=== PATIENT | female | born 1955 | race Two or more races ===

== ENCOUNTER 2023-11-24 15:41 | Inpatient (IN) | payer MEDICARE ==
[~2023-11-24] VITALS: Ht 160 cm; Wt 90.7 kg
[2023-11-24] MEDS ORDERED: HYDROMORPHONE 1 MG/1 ML DISP.SYRIN ONE ×2 (16:10→18:57)
[2023-11-24] MEDS: HYDROMORPHONE 1 MG/1 ML DISP.SYRIN IM ONE ×2 (16:14→19:02)
[2023-11-24] MEDS ORDERED: LORAZEPAM 1 MG TABLET ONE (17:12)
[2023-11-24] MEDS: LORAZEPAM 1 MG TABLET PO ONE (17:25)
[2023-11-24 18:50] LABS: BASOPHILS % (AUTO) 0.2 % (0.0-2.0); HEMATOCRIT 42 % (33-45); HEMOGLOBIN 14.2 g/dL (11.5-14.8); LYMPHOCYTES # (AUTO) 0.6 K/uL (0.8-4.8); LYMPHOCYTES % (AUTO) 6.3 % (20.0-44.0); MEAN CORPUSCULAR HEMOGLOBIN 30 PG (26.0-33.0); MEAN CORPUSCULAR HGB CONC 34 g/dl (31.0-36.0); MEAN CORPUSCULAR VOLUME 88 fL (82-100); MONOCYTES # (AUTO) 0.6 K/uL (0.1-1.30); MONOCYTES % (AUTO) 6.8 % (2.0-12.0); NEUTROPHILS # (AUTO) 8.1 K/uL (1.8-8.9); NEUTROPHILS % (AUTO) 86.7 % (43.0-81.0); PLATELET COUNT (AUTO) 105 K/uL (150-450); RED BLOOD CELL COUNT(AUTO) 4.78 MIL/uL (4.0-5.2); RED CELL DISTRIBUTION WIDTH 17.1 % (11.5-15.0); WHITE BLOOD COUNT (AUTO) 9.4 K/uL (4.3-11.0)
[2023-11-24] MEDS: HYDROMORPHONE 1 MG/1 ML DISP.SYRIN IV ONE (19:08)
[2023-11-24 19:22] LABS: CALCIUM, SERUM 9.9 mg/dL (8.5-10.1); CREATININE 0.9 mg/dL (0.6-1.3); POTASSIUM 4.2 mmol/L (3.5-5.1)
[2023-11-24 19:28] LABS: ALBUMIN 3.5 g/dL (3.4-5.0); BILIRUBIN,DIRECT 0.2 mg/dL (0.0-0.2); BILIRUBIN,TOTAL 0.7 mg/dL (0.2-1.0); TOTAL PROTEIN, SERUM 7.4 g/dL (6.4-8.2)
[2023-11-24] MEDS ORDERED: OXYC5TAB3 PO (19:28)
[2023-11-24] MEDS ORDERED: FLUO40CA49 PO (19:28)
[2023-11-24] MEDS ORDERED: ALPR0.5T6 PO (19:28)
[2023-11-24] MEDS ORDERED: MESA1.2T3 PO (19:28)
[2023-11-24] MEDS ORDERED: PREG-58 PO (19:28)
[2023-11-24] MEDS ORDERED: DEXL60CA3 PO (19:28)
[2023-11-24] MEDS ORDERED: LEVO25TA82 PO (19:28)
[2023-11-24] MEDS ORDERED: ROSU20TA32 PO (19:28)
[2023-11-24] MEDS ORDERED: CHOL400T28 PO (19:28)
[2023-11-24] MEDS ORDERED: ACETAMINOPHEN 325 MG TABLET PO PRN (21:00)
[2023-11-24] MEDS ORDERED: HYDROMORPHONE 1 MG/1 ML DISP.SYRIN IV PRN (21:00)
[2023-11-24] MEDS ORDERED: MAG HYDROX/AL HYDROX/SIMETH 30 ML UDC PO PRN (21:00)
[2023-11-24] MEDS ORDERED: Z GUARD REMEDY 4 OZ OINT TP PRN (21:00)
[2023-11-24] MEDS: IV NS 0.9% 1,000 ML IV SCH (21:32)
[2023-11-24] MEDS ORDERED: Medication Not On Formulary EA (Oxycodone Hcl 5 MG) PO PRN (22:00)
[2023-11-24] MEDS: ATORVASTATIN 40 MG TABLET PO SCH (22:19)
[2023-11-24] MEDS: KETOROLAC TROMETHAMINE INJ 30 MG/ML VIAL IM PRN (22:20)
[2023-11-25] MEDS: HYDROMORPHONE 1 MG/1 ML DISP.SYRIN IV PRN (01:16)
[2023-11-25] MEDS: oxyCODONE IR immediate release 5 MG TABLET PO PRN (02:42)
[2023-11-25 04:00] VITALS: BP 144/61; TEMP 98.6; O2SAT 97
[2023-11-25 06:55] LABS: BASOPHILS % (AUTO) 0.4 % (0.0-2.0); EOSINOPHILS % (AUTO) 0.2 % (0.0-6.0); HEMATOCRIT 38 % (33-45); LYMPHOCYTES # (AUTO) 1.1 K/uL (0.8-4.8); LYMPHOCYTES % (AUTO) 17.5 % (20.0-44.0); MEAN CORPUSCULAR HEMOGLOBIN 30 PG (26.0-33.0); MEAN CORPUSCULAR HGB CONC 34 g/dl (31.0-36.0); MEAN CORPUSCULAR VOLUME 88 fL (82-100); MONOCYTES # (AUTO) 0.7 K/uL (0.1-1.30); MONOCYTES % (AUTO) 11.6 % (2.0-12.0); NEUTROPHILS # (AUTO) 4.2 K/uL (1.8-8.9); NEUTROPHILS % (AUTO) 70.3 % (43.0-81.0); PLATELET COUNT (AUTO) 97 K/uL (150-450); RED BLOOD CELL COUNT(AUTO) 4.31 MIL/uL (4.0-5.2); RED CELL DISTRIBUTION WIDTH 16.6 % (11.5-15.0)
[2023-11-25 07:21] LABS: CALCIUM, SERUM 8.6 mg/dL (8.5-10.1); MAGNESIUM 2.2 mg/dL (1.8-2.4); PHOSPHORUS 3.6 mg/dL (2.5-4.9); POTASSIUM 3.9 mmol/L (3.5-5.1)
[2023-11-25] MEDS: PANTOPRAZOLE 40 MG TABLET.DR PO SCH (07:27)
[2023-11-25] MEDS: LEVOTHYROXINE SODIUM 25 MCG TABLET PO SCH (07:27)
[2023-11-25] MEDS ORDERED: PANTOPRAZOLE 40 MG VIAL IV SCH (09:00)
[2023-11-25 09:04] LABS: THYROID STIMULATING HORMONE 3.031 uIU/mL (0.358-3.74)
[2023-11-25] MEDS: ALPRAZOLAM 0.5 MG TABLET PO SCH (09:04)
[2023-11-25] MEDS: MESALAMINE 400 MG CAP PO SCH (09:04)
[2023-11-25] MEDS: PREGABALIN 25 MG CAPSULE PO SCH (09:04)
[2023-11-25] MEDS: CHOLECALCIFEROL (VITAMIN D 3) 400 UNIT TABLET PO SCH (09:05)
[2023-11-25] MEDS: FLUOXETINE HCL 20 MG CAPSULE PO SCH (09:05)
[2023-11-25 10:42] LABS: LYMPHOCYTES % (MANUAL) 23 % (16-48); MONOCYTES % (MANUAL) 10 % (0-11.0); NEUTROPHILS % (MANUAL) 67 (42-76); PLATELET ESTIMATE DECREASED
[2023-11-25 10:43] LABS: ANISOCYTOSIS 1+
[2023-11-25] MEDS: IV NS 0.9% 1,000 ML IV PRN (11:12)
[2023-11-25 12:00] VITALS: BP 113/72; TEMP 97.6; O2SAT 98
[2023-11-25 16:00] VITALS: BP 116/49; TEMP 98; O2SAT 95
[2023-11-25 20:00] VITALS: BP 125/57; TEMP 97.7; O2SAT 91
[2023-11-25] MEDS ORDERED: CYCLOBENZAPRINE 10 MG TABLET ONE (22:01)
[2023-11-25] MEDS: CYCLOBENZAPRINE 10 MG TABLET PO PRN (22:17)
[2023-11-26 04:00] VITALS: BP 122/73; TEMP 98.4; O2SAT 96
[2023-11-26] MEDS: MAGNESIUM HYDROXIDE 30 ML UDC PO PRN (05:34)
[2023-11-26 06:19] LABS: BASOPHILS % (AUTO) 0.2 % (0.0-2.0); EOSINOPHILS % (AUTO) 0.8 % (0.0-6.0); HEMATOCRIT 36 % (33-45); HEMOGLOBIN 12.3 g/dL (11.5-14.8); LYMPHOCYTES % (AUTO) 19.7 % (20.0-44.0); MEAN CORPUSCULAR HEMOGLOBIN 30 PG (26.0-33.0); MEAN CORPUSCULAR HGB CONC 34 g/dl (31.0-36.0); MEAN CORPUSCULAR VOLUME 89 fL (82-100); MONOCYTES # (AUTO) 0.5 K/uL (0.1-1.30); MONOCYTES % (AUTO) 9.3 % (2.0-12.0); NEUTROPHILS # (AUTO) 3.7 K/uL (1.8-8.9); PLATELET COUNT (AUTO) 83 K/uL (150-450); RED BLOOD CELL COUNT(AUTO) 4.05 MIL/uL (4.0-5.2); RED CELL DISTRIBUTION WIDTH 16.6 % (11.5-15.0); WHITE BLOOD COUNT (AUTO) 5.3 K/uL (4.3-11.0)
[2023-11-26 06:31] LABS: CALCIUM, SERUM 8.3 mg/dL (8.5-10.1); POTASSIUM 4.3 mmol/L (3.5-5.1)
[2023-11-26 08:00] VITALS: BP 127/68; TEMP 98.2; O2SAT 96
[2023-11-26] MEDS: CYCLOBENZAPRINE 10 MG TABLET PO PRN (08:51)
[2023-11-26 10:12] LABS: BASOPHILS % (MANUAL) 0 % (0.0-2.0); EOSINOPHILS % (MANUAL) 0 % (0-4); LYMPHOCYTES % (MANUAL) 22 % (16-48); MONOCYTES % (MANUAL) 10 % (0-11.0); NEUTROPHILS % (MANUAL) 68 (42-76); PLATELET ESTIMATE DECREASED
[2023-11-26 16:00] VITALS: BP 177/85; TEMP 97.7; O2SAT 97
[2023-11-26] MEDS: ONDANSETRON HCL/PF 4 MG/2 ML VIAL IVP PRN (16:50)
[2023-11-26 20:00] VITALS: BP 139/61; TEMP 97.5; O2SAT 97
[2023-11-27 04:00] VITALS: BP 135/70; TEMP 97.8; O2SAT 98
[2023-11-27 08:00] VITALS: BP 156/79; TEMP 98.4; O2SAT 95
[2023-11-27 14:18] LABS: CALCIUM, SERUM 9.8 mg/dL (8.5-10.1); CREATININE 0.8 mg/dL (0.6-1.3); MAGNESIUM 1.9 mg/dL (1.8-2.4); POTASSIUM 4.2 mmol/L (3.5-5.1)
[2023-11-27] MEDS: predniSONE 20 MG TABLET PO SCH (14:27)
[2023-11-27 16:00] VITALS: BP 121/95; TEMP 98.4; O2SAT 94
[2023-11-27] MEDS: PREGABALIN 100 MG CAPSULE PO SCH (16:05)
[2023-11-27] MEDS: Magnesium 1GM/D5W 100ML PREMIX 100 ML IV SCH (17:16)
[2023-11-27] MEDS: METHOCARBAMOL (500MG) 500 MG TABLET PO SCH (17:16)
[2023-11-28 04:14] VITALS: BP 140/65; TEMP 97.7; O2SAT 94
[2023-11-28 12:00] VITALS: BP 149/65; TEMP 98.2; O2SAT 97
[2023-11-28] MEDS ORDERED: POLYVINYL ALCOHOL 15 ML BOTTLE EACHEYE PRN (12:30)
[2023-11-28] MEDS: POLYETHYLENE GLYCOL 3350 17 GM POWD.PACK PO SCH (12:38)
[2023-11-28 20:00] VITALS: BP 134/78; TEMP 98; O2SAT 96
[2023-11-29] MEDS: BISACODYL SUPP (10 MG) 10 MG/SUPP.RECT SUPP.RECT RC PRN (00:58)
[2023-11-29 04:00] VITALS: BP 133/74; TEMP 98.1; O2SAT 96
[2023-11-29] MEDS: predniSONE 20 MG TABLET PO SCH (08:46)
[2023-11-29] MEDS: LORAZEPAM 1 MG TABLET PO PRN (09:21)
[2023-11-29 12:00] VITALS: BP 124/76; TEMP 97.5; O2SAT 94
[2023-11-29 20:00] VITALS: BP 145/70; TEMP 97.7; O2SAT 97
[2023-11-29] MEDS: SENNOSIDES 8.6 MG TABLET PO SCH (21:00)
[2023-11-30 04:00] VITALS: BP 143/65; TEMP 97.5; O2SAT 94
[2023-11-30 06:51] LABS: MAGNESIUM 2.4 mg/dL (1.8-2.4); PHOSPHORUS 2.8 mg/dL (2.5-4.9); POTASSIUM 3.4 mmol/L (3.5-5.1)
[2023-11-30 07:04] LABS: BASOPHILS % (AUTO) 0.1 % (0.0-2.0); HEMATOCRIT 38 % (33-45); LYMPHOCYTES # (AUTO) 0.7 K/uL (0.8-4.8); LYMPHOCYTES % (AUTO) 9.5 % (20.0-44.0); MEAN CORPUSCULAR HEMOGLOBIN 30 PG (26.0-33.0); MEAN CORPUSCULAR HGB CONC 34 g/dl (31.0-36.0); MEAN CORPUSCULAR VOLUME 88 fL (82-100); MONOCYTES # (AUTO) 0.8 K/uL (0.1-1.30); MONOCYTES % (AUTO) 11.3 % (2.0-12.0); NEUTROPHILS # (AUTO) 5.7 K/uL (1.8-8.9); NEUTROPHILS % (AUTO) 79.1 % (43.0-81.0); PLATELET COUNT (AUTO) 108 K/uL (150-450); RED BLOOD CELL COUNT(AUTO) 4.35 MIL/uL (4.0-5.2); RED CELL DISTRIBUTION WIDTH 16.7 % (11.5-15.0); WHITE BLOOD COUNT (AUTO) 7.2 K/uL (4.3-11.0)
[2023-11-30] MEDS: POTASSIUM CHLORIDE 20 MEQ TAB.PRT.SR PO ONE (10:56)
[2023-11-30] MEDS ORDERED: POLY17PO29 PO (12:09)
[2023-11-30] MEDS ORDERED: PREG100C PO (12:09)
[2023-11-30] MEDS ORDERED: OXYC5TAB3 PO (12:09)
[2023-11-30] MEDS ORDERED: METH500T6 PO (12:09)
[2023-11-30] MEDS ORDERED: PRED20TA PO (12:16)
[2023-11-30] MEDS ORDERED: PREG200C PO (13:24)
[2023-11-30 16:00] VITALS: BP 116/65; TEMP 98.4; O2SAT 94
[2023-11-30] MEDS: PREGABALIN 100 MG CAPSULE PO SCH (17:00)
[2023-11-30] MEDS: PREGABALIN 25 MG CAPSULE PO SCH (17:15)
== END 2023-11-30 20:53 | disposition home health service (06) | DRG 552 ==
LOC: ER 15:46 → MEDSG1 20:20
PROVIDERS: ADMIT Nurse Practitioner Acute Care; ATTEND Nurse Practitioner Family
DX: M51.17 Intervertebral disc disorders with radiculopathy, lumbosacral region (principal); K51.90 Ulcerative colitis, unspecified, without complications; K21.9 Gastro-esophageal reflux disease without esophagitis; G89.4 Chronic pain syndrome; E86.0 Dehydration; E66.9 Obesity, unspecified; Z68.35 Body mass index [BMI] 35.0-35.9, adult; E03.9 Hypothyroidism, unspecified; E78.5 Hyperlipidemia, unspecified; F32.A Depression, unspecified; I10 Essential (primary) hypertension; Z98.890 Other specified postprocedural states; Z88.2 Allergy status to sulfonamides
CPT/HCPCS: 36415; 71045-TC; 72148-TC; 80048-TC; 80076-TC; 82550-TC; 83735-TC; 84100-TC; 84443-TC; 85025-TC; 97110-TC; 97116-TC; 97530-TC; A4223; A6403; G0378; J1170; J1885; J2405; J3475; J7030